=== PATIENT | male | born 1960 | race Two or more races ===

== ENCOUNTER 2021-08-27 08:17 | Emergency (ER) | payer OTHER ==
[~2021-08-27] VITALS: Ht 170.2 cm; Wt 81.4 kg
[2021-08-27] MEDS ORDERED: METO25 PO (08:28)
[2021-08-27] MEDS ORDERED: ASPI-1450 PO (08:28)
[2021-08-27] MEDS ORDERED: ROSU20TA73 PO (08:28)
[2021-08-27] MEDS ORDERED: EZET10TA57 PO (08:43)
[2021-08-27] MEDS ORDERED: ISOS60TA77 PO (08:46)
[2021-08-27] MEDS ORDERED: CARV3 PO (08:46)
[2021-08-27 11:01] VITALS: BP 133/75
== END 2021-08-27 13:18 | disposition admitted as inpatient to this hospital (09) ==
LOC: EMS 08:17 → 5S 13:18 → UNDOADMIN 13:18 → UNDODISIN 15:02
DX: R07.9 Chest pain, unspecified (principal); Z86.73 Personal history of transient ischemic attack (TIA), and cerebral infarction without residual deficits; Z86.79 Personal history of other diseases of the circulatory system; Z98.890 Other specified postprocedural states
CPT/HCPCS: 93005; 99284; 99285; Z7502